=== PATIENT | female | born 1980 | race Caucasian/White ===

== ENCOUNTER 2018-01-31 15:22 | Emergency (ER) | payer OTHER ==
--- NOTE | 2018-01-31 15:34 | ED PDOC ---
Arrival/HPI - General Time Seen by Provider: 01/31/18 15:32 Historian: Patient - History of Present Illness Narrative History of Present Illness (Text): 01/31/18 15:33 37 y/o female, pmh including cholelithiasis and CBD stones with stents, nkda, c/o lt. sided abdominal pain x 2 days. Lt. sided abdominal pain pressure and pain, associated with nausea/vomiting, no fever or chills, no flank pain, no numbness or tingling, no urinary symptoms, no hematuria, no pelvic pain, no vaginal bleeding or discharge, no flank pain, no night sweat, no rash, no other medical or psychological complaints. Last bowel movement was today. Past Medical History - Provider Review Nursing Documentation Reviewed: Yes - Past History Past History: No Previous - Past Medical History Past Medical History: No Previous - Cardiac Hx Pacemaker: No - Neurological Hx Paralysis: No - Hematological/Oncological Hx Blood Transfusions: No Hx Blood Transfusion Reaction: No - Musculoskeletal/Rheumatological Hx Musculoskeletal Disorders: Yes (SPINAL CYST) - Psychiatric Hx Depression: No Hx Emotional Abuse: No Hx Physical Abuse: No Hx Substance Use: No - Past Surgical History Past Surgical History: No Previous - Anesthesia Hx Anesthesia Reactions: No Hx Malignant Hyperthermia: No - Suicidal Assessment Feels Threatened In Home Enviroment: No Family/Social History - Physician Review Nursing Documentation Reviewed: Yes Family/Social History: Unknown Family HX Smoking Status: Unknown If Ever Smoked Hx Alcohol Use: No Hx Substance Use: No Allergies/Home Meds Allergies/Adverse Reactions: Allergies No Known Allergies Allergy (Verified 01/31/18 16:03) Review of Systems - Review of Systems Constitutional: absent: Fatigue, Fevers Eyes: absent: Vision Changes ENT: absent: Hearing Changes Respiratory: absent: SOB, Cough Cardiovascular: absent: Chest Pain Gastrointestinal: Abdominal Pain, Nausea, Vomiting. absent: Diarrhea Musculoskeletal: absent: Arthralgias, Back Pain Skin: absent: Rash, Pruritis Neurological: absent: Headache, Dizziness Psychiatric: absent: Anxiety, Depression, Suicidal Ideation Physical Exam - Systems Exam Head: Present: Atraumatic, Normocephalic Pupils: Present: PERRL Extroacular Muscles: Present: EOMI Conjunctiva: Present: Normal Mouth: Present: Moist Mucous Membranes Neck: Present: Normal Range of Motion Respiratory/Chest: Present: Clear to Auscultation, Good Air Exchange. No: Respiratory Distress, Accessory Muscle Use Cardiovascular: Present: Regular Rate and Rhythm, Normal S1, S2. No: Murmurs Abdomen: Present: Tenderness (+ttp on the lt. sided abdomen). No: Distention, Peritoneal Signs, Rebound, Guarding, Hernias Back: Present: Normal Inspection. No: CVA Tenderness, Midline Tenderness, Paraspinal Tenderness Upper Extremity: Present: Normal Inspection. No: Cyanosis, Edema Lower Extremity: Present: Normal Inspection. No: Edema Neurological: Present: GCS=15, CN II-XII Intact, Speech Normal Skin: Present: Warm, Dry, Normal Color. No: Rashes, Erythematous Psychiatric: Present: Alert, Oriented x 3, Normal Insight, Normal Concentration Medical Decision Making ED Course and Treatment: 01/31/18 16:06 -Urine hcg -Labs/ua -CT abdomen and pelvis -IVF/pepcid/zofran/toradol -Observe and reassess 01/31/18 19:02 -Urine hcg is negative -CT abdomen and pelvis show: Findings suggestive of ruptured left adnexal cyst. Associated fluid in the pelvis/cul-de-sac. Otherwise unremarkable contrast enhanced CT of the abdomen and pelvis. -Labs show no acute findings -UA show mild UTI -All labs and radiology results explained to the patient, she feels much better, no pain, request to be discharged home, refused pelvic exam -Discharge home with motrin, macrobid, bed rest, follow up with your own pmd and GI/OBGYN within 2 days, return to the ER for any new or worsening signs or symptoms. - Lab Interpretations I have reviewed the lab results: Yes - RAD Interpretation Radiology Orders: Date of service: 01/31/2018 PROCEDURE: CT Abdomen and Pelvis with contrast HISTORY: Left-sided abdominal pain/nausea/vomiting COMPARISON: None. TECHNIQUE: Intravenous contrast dose: 100 cc Omnipaque 300 Radiation dose: Total exam DLP = 614.95 mGy-cm. This CT exam was performed using one or more of the following dose reduction techniques: Automated exposure control, adjustment of the mA and/or kV according to patient size, and/or use of iterative reconstruction technique. FINDINGS: LOWER THORAX: Unremarkable. LIVER: Unremarkable. No gross lesion or ductal dilatation. GALLBLADDER AND BILE DUCTS: Unremarkable. PANCREAS: Unremarkable. No gross lesion or ductal dilatation. SPLEEN: Unremarkable. ADRENALS: Unremarkable. No mass. KIDNEYS AND URETERS: Unremarkable. No hydronephrosis. No solid mass. VASCULATURE: Unremarkable. No aortic aneurysm. BOWEL: Unremarkable. No obstruction. No gross mural thickening. APPENDIX: Normal appendix. PERITONEUM: Trace free fluid identified in the pelvis/cul de sac. No free air. LYMPH NODES: Unremarkable. No enlarged lymph nodes. BLADDER: Unremarkable. REPRODUCTIVE: Deformed cyst in the left adnexa likely ruptured cyst/follicle. BONES: No acute fracture. OTHER FINDINGS: None. IMPRESSION: Findings suggestive of ruptured left adnexal cyst. Associated fluid in the pelvis/cul-de-sac. Otherwise unremarkable contrast enhanced CT of the abdomen and pelvis. Db2 Developer: Radiologist - PA / NEWSPAPER DELIVERER / Resident Statement MD/DO has reviewed & agrees with the documentation as recorded. Disposition/Present on Arrival - Present on Arrival Any Indicators Present on Arrival: No History of DVT/PE: No History of Uncontrolled Diabetes: No Urinary Catheter: No History of Decub. Ulcer: No History Surgical Site Infection Following: None - Disposition Have Diagnosis and Disposition been Completed?: Yes Diagnosis: Abdominal pain, Adnexal cyst, UTI (urinary tract infection) Disposition: HOME/ ROUTINE Disposition Time: 19:05 Patient Plan: Discharge Patient Problems: Current Active Problems Problem Status Onset Abdominal pain Acute Adnexal cyst Acute Condition: IMPROVED Additional Instructions: -Discharge home with motrin, macrobid, bed rest, follow up with your own pmd and GI/OBGYN within 2 days, return to the ER for any new or worsening signs or symptoms. Prescriptions: Ibuprofen [Motrin] 600 mg PO QID PRN #30 tab PRN Reason: Other Nitrofurantoin Macrocrystals [Macrobid] 100 mg PO BID #14 cap Referrals: Brittani Roa MD [Staff Provider] - Follow up with primary Surinder Lamb MD [Staff Provider] - Follow up with primary [facility] [place] [Outside] - Follow up with primary Forms: WORK NOTE
[2018-01-31 16:03] VITALS: PULSE 78; TEMP 98; O2SAT 100; BMI 27.6
[2018-01-31] MEDS ORDERED: Sodium Chloride 0.9% 1,000 ML IV STA (16:07)
[2018-01-31 17:07] LABS: PH,URINE 6.5 (4.7-8.0); URINE BILIRUBIN NEGATIVE (NEGATIVE); URINE BLOOD NEGATIVE (NEGATIVE); URINE GLUCOSE (UA) NEGATIVE (NEGATIVE); URINE LEUKOCYTE ESTERASE TRACE Leu/uL (NEGATIVE); URINE PROTEIN NEGATIVE mg/dL (<30 mg/dL); URINE UROBILINOGEN 0.2 E.U./dL (<1 E.U./dL)
[2018-01-31 17:08] LABS: URINE APPEARANCE CLEAR (CLEAR); URINE COLOR LIGHT YELLOW (YELLOW)
[2018-01-31 17:13] LABS: BASO # 0.01 K/mm3 (0.0-2.0); BASO % 0.2 % (0.0-3.0); EOS # 0.1 (0.0-0.7); EOS % 1.8 % (1.5-5.0); GRAN # 2.83 (1.4-6.5); GRAN % 52.1 % (50.0-68.0); HEMOGLOBIN 12.6 g/dL (12.0-16.0); LYMPH % 37.4 % (22.0-35.0); MEAN CELL VOLUME 89.3 fl (80.0-105.0); MEAN CORPUSCULAR HEMOGLOBIN 30.7 pg (25.0-35.0); MEAN CORPUSCULAR HGB CONC 34.3 g/dl (31.0-37.0); MEAN PLATELET VOLUME 9.9 fl (7.0-11.0); MONO # 0.5 (0.1-0.6); MONO % 8.5 % (1.0-6.0); RBC 4.11 10^6/uL (3.5-6.1); RED CELL DISTRIBUTION WIDTH 13.6 % (11.5-14.5); WHITE BLOOD COUNT 5.4 10^3/ul (4.5-11.0)
[2018-01-31 17:14] LABS: ALB/GLOB RATIO 1.3 (1.1-1.8); ALT/SGPT 28 U/L (7-56); AST/SGOT 27 U/L (14-36); BLOOD UREA NITROGEN 14 mg/dL (7-21); CALCIUM 8.7 mg/dL (8.4-10.5); GFR NON-AFRICAN AMERICAN > 60; LIPASE 125 U/L (23-300); URINE BACTERIA TRACE (NEG); URINE RBC NEGATIVE /hpf (0-2); URINE WBC 0 - 2 /hpf (0-6)
[2018-01-31] MEDS ORDERED: Iohexol 350 MG/100 ML VIAL ONE (17:37)
[2018-01-31 17:45] VITALS: RESP 18
--- NOTE | 2018-01-31 18:29 | CT ---
Date of service: 01/31/2018 PROCEDURE: CT Abdomen and Pelvis with contrast HISTORY: Left-sided abdominal pain/nausea/vomiting COMPARISON: None. TECHNIQUE: Intravenous contrast dose: 100 cc Omnipaque 300 Radiation dose: Total exam DLP = 614.95 mGy-cm. This CT exam was performed using one or more of the following dose reduction techniques: Automated exposure control, adjustment of the mA and/or kV according to patient size, and/or use of iterative reconstruction technique. FINDINGS: LOWER THORAX: Unremarkable. LIVER: Unremarkable. No gross lesion or ductal dilatation. GALLBLADDER AND BILE DUCTS: Unremarkable. PANCREAS: Unremarkable. No gross lesion or ductal dilatation. SPLEEN: Unremarkable. ADRENALS: Unremarkable. No mass. KIDNEYS AND URETERS: Unremarkable. No hydronephrosis. No solid mass. VASCULATURE: Unremarkable. No aortic aneurysm. BOWEL: Unremarkable. No obstruction. No gross mural thickening. APPENDIX: Normal appendix. PERITONEUM: Trace free fluid identified in the pelvis/cul de sac. No free air. LYMPH NODES: Unremarkable. No enlarged lymph nodes. BLADDER: Unremarkable. REPRODUCTIVE: Deformed cyst in the left adnexa likely ruptured cyst/follicle. BONES: No acute fracture. OTHER FINDINGS: None. IMPRESSION: Findings suggestive of ruptured left adnexal cyst. Associated fluid in the pelvis/cul-de-sac. Otherwise unremarkable contrast enhanced CT of the abdomen and pelvis.
[2018-01-31 19:46] VITALS: BP 115/67
== END 2018-01-31 19:45 | disposition home or self-care (01) ==
LOC: ED 15:22
DX: N39.0 Urinary tract infection, site not specified (principal); N83.8 Other noninflammatory disorders of ovary, fallopian tube and broad ligament; R10.9 Unspecified abdominal pain
CPT/HCPCS: 74177; 80053; 81001; 83690; 83735; 85025; 87086; 96361; 96374; 96375; 99283; J1885; J2405; J7030; Q9967

== ENCOUNTER 2018-05-28 07:10 | Emergency (ER) | payer OTHER ==
[2018-05-28 07:40] VITALS: RESP 18; TEMP 98.2; BMI 26.6
--- NOTE | 2018-05-28 08:12 | ED PDOC ---
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 She endorse HINES associated with the pain. she states that she often has to carry heavy boxes out of the basement. She denies any falls or inciting trauma for the pain. She additionally denies Dizziness, SOB, CP, abdominal pain, f/c, n/v, dysuria, stool changes and extremity weakness. 05/28/18 08:08 Time/Duration: 1 week Symptom Onset: Gradual Symptom Course: Unchanged Quality: Aching, Tightness Severity Level: 7 Modifying Factors (Text): worsened with motion 05/28/18 08:14 Context: Exertion, Work <Yaz Hong - Last Filed: 05/28/18 09:00> <Danis Gaines - Last Filed: 05/28/18 14:53> - General Chief Complaint: Pain, Chronic Time Seen by Provider: 05/28/18 08:02 Past Medical History - Provider Review Nursing Documentation Reviewed: Yes - Past History Past History: No Previous - Infectious Disease Hx of Infectious Diseases: None - Reproductive Menopause: No - Past Medical History Past Medical History: No Previous - Cardiac Hx Pacemaker: No - Pulmonary Hx Respiratory Disorders: No - Neurological Hx Paralysis: No - HEENT Hx HEENT Disorder: No - Renal Hx Renal Disorder: No - Endocrine/Metabolic Hx Endocrine Disorders: No - Hematological/Oncological Hx Blood Transfusions: No Hx Blood Transfusion Reaction: No - Integumentary Hx Dermatological Disorder: No - Musculoskeletal/Rheumatological Hx Musculoskeletal Disorders: Yes (SPINAL CYST) - Gastrointestinal Hx Gastrointestinal Disorders: No - Genitourinary/Gynecological Hx Genitourinary Disorders: No - Psychiatric Hx Depression: No Hx Emotional Abuse: No Hx Physical Abuse: No Hx Substance Use: No - Past Surgical History Past Surgical History: No Previous - Anesthesia Hx Anesthesia Reactions: No Hx Malignant Hyperthermia: No - Suicidal Assessment Feels Threatened In Home Enviroment: No <Yaz Hong - Last Filed: 05/28/18 09:00> Family/Social History - Physician Review Nursing Documentation Reviewed: Yes Family/Social History: Unknown Family HX Smoking Status: Unknown If Ever Smoked Hx Alcohol Use: No Hx Substance Use: No <Yaz Hong - Last Filed: 05/28/18 09:00> Allergies/Home Meds <Yaz Hong - Last Filed: 05/28/18 09:00> <Danis Gaines - Last Filed: 05/28/18 14:53> Allergies/Adverse Reactions: Allergies No Known Allergies Allergy (Verified 01/31/18 16:03) Review of Systems - Physician Review All systems were reviewed & negative as marked: Yes - Review of Systems Constitutional: Fatigue. absent: Weight Change, Fevers Respiratory: absent: SOB, Cough Cardiovascular: absent: Chest Pain, Palpitations, Edema, Calf Pain Gastrointestinal: absent: Abdominal Pain, Constipation, Diarrhea, Nausea, Vomiting Genitourinary Female: absent: Dysuria Musculoskeletal: Arthralgias, Neck Pain. absent: Back Pain Skin: absent: Rash, Skin Lesions Neurological: Headache. absent: Dizziness, Focal Weakness, Speech Changes, Facial Droop Endocrine: absent: Diaphoresis <Yaz Hong - Last Filed: 05/28/18 09:00> Physical Exam Vital Signs Reviewed: Yes Vital Signs Temp Pulse Resp BP Pulse Ox 05/28/18 07:36 98.2 F 80 18 123/85 99 Temperature: Afebrile Blood Pressure: Normal Pulse: Regular Respiratory Rate: Normal Appearance: Positive for: Well-Appearing, Non-Toxic, Comfortable Pain Distress: Mild Mental Status: Positive for: Alert and Oriented X 3 - Systems Exam Head: Present: Atraumatic, Normocephalic Extroacular Muscles: Present: EOMI Mouth: Present: Moist Mucous Membranes Neck: Present: Normal Range of Motion, Paraspinal Tenderness, Trachea Midline. No: Meningeal Signs, MIDLINE TENDERNESS, Lymphadenopathy Respiratory/Chest: Present: Clear to Auscultation, Good Air Exchange. No: Respiratory Distress, Accessory Muscle Use Cardiovascular: Present: Regular Rate and Rhythm, Normal S1, S2. No: Murmurs Abdomen: No: Tenderness, Distention, Peritoneal Signs, Guarding Back: Present: Normal Inspection. No: Midline Tenderness, Paraspinal Tenderness Upper Extremity: Present: Normal Inspection, Normal ROM (with mild pain), NORMAL PULSES, Neurovascularly Intact. No: Cyanosis, Edema, Tenderness, Swelling, Erythema Lower Extremity: Present: Normal Inspection, NORMAL PULSES, Normal ROM (mild pain Left knee), Neurovascularly Intact. No: Edema, CALF TENDERNESS, Cyanosis, Tenderness, Swelling, Deformity Neurological: Present: GCS=15, CN II-XII Intact, Speech Normal Skin: Present: Warm, Dry, Normal Color. No: Rashes Psychiatric: Present: Alert, Oriented x 3, Normal Insight, Normal Concentration <Yaz Hong - Last Filed: 05/28/18 09:00> Vital Signs Temp Pulse Resp BP Pulse Ox 05/28/18 09:25 100 05/28/18 09:05 87 18 129/80 100 05/28/18 07:36 98.2 F 80 18 123/85 99 <Danis Gaines - Last Filed: 05/28/18 14:53> Medical Decision Making ED Course and Treatment: Impression 37 F with no significant PMH who presents with multiple areas of chronic pain, likely musculoskeletal given her strenuous job Plan: EKG toradol Valium reassess and dispo 05/28/18 08:17 <Yaz Hong - Last Filed: 05/28/18 09:00> ED Course and Treatment: 05/28/18 08:23 Patient is a 37 year old female presenting to the emergency department complaining of pain to multiple areas. In agreement with resident note, which includes further HPI details. Patient was seen and evaluated with resident, came up with plan and - Medication Orders Current Medication Orders: Discontinued Medications Diazepam (Valium) 5 mg PO ONCE ONE; Protocol Stop: 05/28/18 08:12 Last Admin: 05/28/18 08:33 Dose: 5 mg Ketorolac Tromethamine (Toradol) 30 mg IM STAT STA Stop: 05/28/18 08:12 Last Admin: 05/28/18 08:33 Dose: 30 mg MAR Pain Assessment Document 05/28/18 08:33 NELLIE (Rec: 05/28/18 08:33 NELLIE [id number]) Pain Reassessment Is this a pain reassessment? No Sleep Is patient sleeping during reassessment? No Presence of Pain Presence of Pain Yes Pain Scale Used Protocol: PSCALES Pain Scale Used Numeric Description Intensity of Pain at present 10 IM Administration Charges Document 05/28/18 08:33 NELLIE (Rec: 05/28/18 08:33 ANDRESEden [id number]) Injection Site MAR Injection Site Right Gluteus Medius Charges for Administration # of IM Administrations 1 <Danis Gaines - Last Filed: 05/28/18 14:53> - PA / TREASURY SPECIALIST / Resident Statement / has reviewed & agrees with the documentation as recorded. / has examined the patient and agrees with the treatment plan. - Scribe Statement The provider has reviewed the documentation as recorded by the Scribalthea Fuller All medical record entries made by the Scribe were at my direction and personally dictated by me. I have reviewed the chart and agree that the record accurately reflects my personal performance of the history, physical exam, medical decision making, and the department course for this patient. I have also personally directed, reviewed, and agree with the discharge instructions and disposition. <Danis Gaines - Last Filed: 05/28/18 14:53> Disposition/Present on Arrival - Present on Arrival Any Indicators Present on Arrival: No History of DVT/PE: No History of Uncontrolled Diabetes: No Urinary Catheter: No History of Decub. Ulcer: No History Surgical Site Infection Following: None - Disposition Have Diagnosis and Disposition been Completed?: Yes Disposition Time: 08:52 Patient Plan: Discharge <Yaz Hong - Last Filed: 05/28/18 09:00> <Danis Gaines - Last Filed: 05/28/18 14:53> - Disposition Diagnosis: Musculoskeletal pain, Musculoskeletal pain of right upper extremity, Musculoskeletal pain of left lower extremity, Musculoskeletal pain of left upper extremity Disposition: HOME/ ROUTINE Condition: GOOD Discharge Instructions (ExitCare): Muscle Strain (DC), Chronic Knee Pain (DC), Elbow Sprain (DC), Shoulder Pain (DC) Print Language: UPPER SORBIAN Additional Instructions: please follow up with your primary care provider within 3-5 days of discharge You have been given the following prescriptions Flexeril Motrin If your symptoms persist, worsen or if new concerning symptoms develop please proceed to the nearest ER for further evaluation Prescriptions: Cyclobenzaprine [Cyclobenzaprine HCl] 10 mg PO Q8 #15 tab Ibuprofen [Motrin] 600 mg PO Q6 5 Days #20 tab Forms: [employer] (Italian), WORK NOTE
[2018-05-28 09:06] VITALS: BP 129/80; PULSE 87; O2SAT 100
--- NOTE | 2018-05-28 22:28 | CARD ---
APPROVED REPORT Date of service: 05/28/2018 EKG Measurement Heart [id number] <Conclusion> Normal sinus rhyth Normal ECG
== END 2018-05-28 09:34 | disposition home or self-care (01) ==
LOC: ED 07:10
DX: M79.601 Pain in right arm (principal); M79.602 Pain in left arm; M79.18 Myalgia, other site; M79.662 Pain in left lower leg
CPT/HCPCS: 81025; 93005; 96372; 99282; J1885